=== PATIENT | female | born 1970 | race Asian ===

== ENCOUNTER → 2016-11-12 | Outpatient (CLI) | payer OTHER ==
[~2016-11-12] MED LIST: HYAL1CAP PO; PROP10TA PO; [UNRECOGNIZED DRUG - OTHER] PO
[2016-11-12 16:26] LABS: HEMOGLOBIN 14.8 g/dL (11.7-16.4)
== END | disposition home or self-care (01) ==
LOC: STAR 15:19
PROVIDERS: ATTEND Specialist
DX: D25.2 Subserosal leiomyoma of uterus (principal); N94.4 Primary dysmenorrhea; N94.12 Deep dyspareunia; N92.0 Excessive and frequent menstruation with regular cycle
CPT/HCPCS: 36415; 84703; 85025

== ENCOUNTER 2016-11-17 08:21 | Day surgery (SDC) | payer OTHER ==
[~2016-11-17] VITALS: Ht 152.4 cm; Wt 50.0 kg
[~2016-11-17 08:21] MED LIST changes: +BUPIVACAINE/PF 0.25% ONE; +FLUORESCEIN SODIUM 500 MG/5 ML ONE
[2016-11-17] MEDS ORDERED: LACTATED RINGERS 1,000 ML IV SCH ×2 (09:24→09:43)
[2016-11-17 09:28] VITALS: BP 127/84
[2016-11-17] MEDS ORDERED: SCOPOLAMINE PATCH, 1.5MG PATCH.TD72 TD ONE (09:30)
[2016-11-17 09:34] LABS: HCG UR OBC PASS
[2016-11-17] MEDS ORDERED: ACETAMINOPHEN 325 MG TABLET PO PRN (10:30)
[2016-11-17] MEDS ORDERED: MEPERIDINE/PF 25MG/0.5ML IVPush PRN (10:30)
[2016-11-17] MEDS ORDERED: LABETALOL 5MG/ML, 20ML IV PRN (10:30)
[2016-11-17] MEDS ORDERED: EPHEDRINE 50 MG/ML, 1ML IVPush PRN (10:30)
[2016-11-17] MEDS ORDERED: PROMETHAZINE 25 MG/ML, 1ML IV PRN (10:30)
[2016-11-17] MEDS ORDERED: morphine SULFATE 10 MG/ML, 1ML IV PRN (10:30)
[2016-11-17] MEDS ORDERED: HYDROmorphone 1 MG/ML, 1ML IV PRN (10:30)
[2016-11-17] MEDS ORDERED: METOPROLOL 1 MG/ML, 5ML IV PRN (10:30)
[2016-11-17] MEDS ORDERED: OXYcodone 5 MG/5 ML ORAL.SOL UDC PO PRN (10:30)
[2016-11-17] MEDS ORDERED: MIDAZOLAM 1 MG/ML, 2ML IV PRN (10:30)
[2016-11-17] MEDS ORDERED: ONDANSETRON 2MG/ML, 2ML IVPush PRN (10:30)
[2016-11-17] MEDS ORDERED: hydrALAzine 20 MG/ML, 1ML IV PRN (10:30)
[2016-11-17] MEDS ORDERED: FENTANYL PF 250 MCG/5ML ONE (11:09)
[2016-11-17] MEDS ORDERED: MIDAZOLAM 1 MG/ML, 2ML ONE (11:10)
[2016-11-17] MEDS ORDERED: ONDANSETRON 2MG/ML, 2ML ONE (11:18)
[2016-11-17] MEDS ORDERED: ROCURONIUM 10 MG/ML ONE (11:18)
[2016-11-17] MEDS ORDERED: KETOROLAC 30 MG/1 ML ONE (11:18)
[2016-11-17] MEDS ORDERED: DEXAMETHASONE 4 MG/ML, 1ML ONE (11:18)
[2016-11-17] MEDS ORDERED: PROPOFOL 10 MG/ML, 20ML ONE (11:18)
[2016-11-17] MEDS ORDERED: CEFOTETAN 1 GM ONE (11:18)
[2016-11-17] MEDS ORDERED: FLUORESCEIN SODIUM 500 MG/5 ML IV ONE (12:20)
[2016-11-17] MEDS ORDERED: MEPERIDINE/PF 25MG/0.5ML ONE (13:49)
[2016-11-17] MEDS ORDERED: OXYcodone 5 MG/5 ML ORAL.SOL UDC ONE (14:05)
[2016-11-17] MEDS ORDERED: FENTANYL PF 100 MCG/2ML ONE (14:05)
[2016-11-17] MEDS ORDERED: ACETAMINOPHEN 325 MG TABLET ONE (14:05)
[2016-11-17] MEDS: FENTANYL PF 100 MCG/2ML IV PRN ×2 (14:06→14:19)
== END 2016-11-17 17:05 | disposition home or self-care (01) ==
LOC: OUT 08:21
PROVIDERS: ATTEND Specialist
DX: D25.9 Leiomyoma of uterus, unspecified (principal); N83.12 Corpus luteum cyst of left ovary; N80.3 Endometriosis of pelvic peritoneum; N73.6 Female pelvic peritoneal adhesions (postinfective); J45.20 Mild intermittent asthma, uncomplicated; E05.90 Thyrotoxicosis, unspecified without thyrotoxic crisis or storm; Z82.49 Family history of ischemic heart disease and other diseases of the circulatory system
CPT/HCPCS: 58571; 81025; 88307; J1100; J1885; J2175; J2250; J2405; J2704; J3010; J7120; S2900; J3490; S0074

== ENCOUNTER → 2018-01-05 | Outpatient (CLI) | payer OTHER ==
[~2018-01-05] MED LIST changes: -BUPIVACAINE/PF 0.25% ONE; -FLUORESCEIN SODIUM 500 MG/5 ML ONE
== END | disposition home or self-care (01) ==
LOC: CARD 08:27
PROVIDERS: ATTEND Family Medicine
DX: R42 Dizziness and giddiness (principal); R07.9 Chest pain, unspecified
CPT/HCPCS: 93017; 93225; 93226

== ENCOUNTER 2020-07-23 12:31 | Emergency (ER) | payer OTHER ==
[~2020-07-23] VITALS: Ht 152.4 cm; Wt 51.7 kg
[~2020-07-23 12:31] MED LIST changes: -PROP10TA PO; +PROP10TA16 PO
--- NOTE | 2020-07-23 13:02 | NUR ---
PATIENT NOT IN LOBBY X1 @[id number]
--- NOTE | 2020-07-23 13:23 | NUR ---
PT STATES "I'VE BEEN HAVING PAINS IN MY UPPER BACK THAT GOES DOWN MY RIGHT ARM, I'M ALSO SHORT OF BREATH AND HAVE CHEST PAIN". PER PT THE CHEST PAIN STARTED ON WEDNESDAY BUT IS GETTING WORSE, PT STATES HER RIGHT ARM IS ALSO STARTING TO FEEL NUMB. EKG DONE IN TRIAGE, PT RESTING ON GURNEY WITH CARDIAC MONITORING AND CONT PULSE OX IN PLACE. NAD NOTED, WILL CONTINUE TO MONITOR.
[2020-07-23] MEDS ORDERED: KETOROLAC 30 MG/1 ML ONE (13:58)
[2020-07-23] MEDS ORDERED: CYCLOBENZAPRINE 10 MG TABLET ONE ×2 (13:58→14:12)
[2020-07-23 14:17] VITALS: BP 121/71
[2020-07-23 14:21] LABS: TROPONIN I < 0.015 ng/mL (0.000-0.045)
[2020-07-23] MEDS ORDERED: CYCLOBENZAPRINE 10 MG TABLET PO ONE ×2 (14:30→15:00)
[2020-07-23] MEDS ORDERED: KETOROLAC 30 MG/1 ML IVPush ONE (15:00)
== END 2020-07-23 15:03 | disposition home or self-care (01) ==
LOC: ED 13:26
DX: S16.1XXA Strain of muscle, fascia and tendon at neck level, initial encounter (principal); G56.01 Carpal tunnel syndrome, right upper limb; R51.9 Headache, unspecified; Z90.89 Acquired absence of other organs; Z90.710 Acquired absence of both cervix and uterus; Z79.899 Other long term (current) drug therapy; X58.XXXA Exposure to other specified factors, initial encounter; Y93.89 Activity, other specified; Y92.89 Other specified places as the place of occurrence of the external cause; Y99.8 Other external cause status
CPT/HCPCS: 36415; 84484; 93005; 99284